=== PATIENT | female | born 1970 | race Caucasian/White ===

== ENCOUNTER 2017-01-15 17:51 | Outpatient (CLI) | payer OTHER ==
--- NOTE | 2017-01-15 21:46 | Ultrasound Report ---
EXAM: RIGHT LOWER EXTREMITY VENOUS ULTRASOUND EXAM DATE: 01/15/2017 06:56 PM. CLINICAL HISTORY: Edema. COMPARISON: None. TECHNIQUE: Real-time sonographic vascular imaging was performed by the oncology pharmacist through the lower extremity utilizing both color-flow and Doppler spectral analysis. Multiple contact center representative static alana ges were saved for review. FINDINGS: Common Femoral Vein (CFV): Normal. CFV-GSV Junction: Normal. Profunda Femoral Vein (PFV): Normal. Femoral Vein (FV) Prox: Normal. Femoral Vein (FV) Mid: Normal. Femoral Vein (FV) Dist: Not well seen. Popliteal Vein: Normal. Posterior Tibial Veins: Not well seen. Peroneal Veins: Not seen. Contralateral Side CFV: Normal. Other: Right leg edema noted. IMPRESSION: 1. No superficial or deep venous thrombosis. 2. Right femoral and posterior tibial veins are not well seen. Right peroneal vein is not visible. 3. Right leg swelling noted. [facility] Referring Provider Line: [phone] SITE ID: [id number]
== END 2017-01-15 17:52 | disposition home or self-care (01) ==
LOC: DI 17:51
PROVIDERS: ATTEND Physician Assistant Medical
DX: R60.9 Edema, unspecified (principal)

== ENCOUNTER 2020-05-30 10:00 | Outpatient (CLI) | payer OTHER | END 2020-05-30 10:01 | disposition home or self-care (01) | LOC: COV 10:00 | PROVIDERS: ATTEND Family Medicine | DX: R05 Cough (principal); R09.81 Nasal congestion; Z20.828 Contact with and (suspected) exposure to other viral communicable diseases ==